=== PATIENT | female | born 1945 | race Two or more races ===

== ENCOUNTER → 2024-06-12 11:08 | Outpatient (REF) | payer OTHER, SELFPAY ==
[2024-06-12 12:41] LABS: % Basophils 1.6 % (0-2); % Eosinophils 5.5 % (0-6); % Immature Granulocytes 0.1 % (0-0.5); % Lymphocytes 41.5 % (20.5-51.1); % Monocytes 11.7 % (1.7-9.3); % Neutrophils 39.6 % (42.2-75.2); Absolute Basophils 0.1 10^3/uL (0-0.2); Absolute Eosinophils 0.4 10^3/uL (0-0.7); Absolute Lymphocytes 2.8 10^3/uL (1.2-3.4); Absolute Monocytes 0.8 10^3/uL (0.1-0.6); Absolute Neutrophils 2.6 10^3/uL (1.4-6.5); Hematocrit 40.2 % (37.0-47.0); Hemoglobin 13.2 g/dL (12.0-16.0); Mean Corp Hgb Conc. 32.8 g/dL (33.0-37.0); Mean Corpuscular Hgb 30.3 pg (27.0-31.0); Mean Corpuscular Volume 92.2 fL (81.0-99.0); Mean Platelet Volume 9.7 fL (7.4-10.4); Nucleated Red Blood Cells % 0 %; Platelet Count 286 10^3/uL (130-400); Red Blood Cell Count 4.36 10^6/uL (4.20-5.40); White Blood Cell Count 6.7 10^3/uL (4.8-10.8)
[2024-06-12 12:59] LABS: ALT (SGPT) 23 U/L (0-35); AST (SGOT) 30 U/L (14-36); Albumin 4.5 g/dl (3.5-5.0); Alkaline Phosphatase 51 U/L (38-126); Blood Urea Nitrogen 22 mg/dl (7-17); Calcium 9.4 mg/dl (8.4-10.2); Carbon Dioxide 29 mmol/L (22-30); Chloride 103 mmol/L (98-107); Glucose 75 mg/dl (70-99); Potassium 4.7 mmol/L (3.5-5.1); Sodium 142 mmol/L (135-145); Total Bilirubin 1.2 mg/dl (0.2-1.3); Total Cholesterol 274 mg/dl (50-199); Total Protein 7.1 g/dl (6.3-8.2); Triglyceride 50 mg/dl (10-149); Very Low Density Lipoprotein 10 mg/dl (0-30); eGFR > 60.00
[2024-06-12 13:12] LABS: HDL Cholesterol 127 mg/dl; LDL Cholesterol, Calculated 137 mg/dl
[2024-06-12 13:28] LABS: TSH 5.03 uIU/ml (0.47-4.68)
== END ==
LOC: OLABN 11:08
PROVIDERS: ATTENDING PHYSICIAN Student in an Organized Health Care Education/Training Program
DX: I10 Essential (primary) hypertension (principal); J44.0 Chronic obstructive pulmonary disease with (acute) lower respiratory infection; N18.9 Chronic kidney disease, unspecified; E78.5 Hyperlipidemia, unspecified
CPT/HCPCS: 36415; 80053; 80061; 84443; 85025

== ENCOUNTER → 2024-08-08 08:57 | Outpatient (REF) | payer MEDICARE, SELFPAY ==
[2024-08-08 11:00] LABS: % Basophils 0.6 % (0-2); % Eosinophils 2.3 % (0-6); % Immature Granulocytes 0.4 % (0-0.5); % Lymphocytes 21.2 % (20.5-51.1); % Monocytes 10.3 % (1.7-9.3); % Neutrophils 65.2 % (42.2-75.2); Absolute Basophils 0.1 10^3/uL (0-0.2); Absolute Eosinophils 0.2 10^3/uL (0-0.7); Absolute Neutrophils 6.2 10^3/uL (1.4-6.5); Hematocrit 36.5 % (37.0-47.0); Hemoglobin 11.9 g/dL (12.0-16.0); Mean Corp Hgb Conc. 32.6 g/dL (33.0-37.0); Mean Corpuscular Hgb 30.4 pg (27.0-31.0); Mean Corpuscular Volume 93.4 fL (81.0-99.0); Mean Platelet Volume 9.5 fL (7.4-10.4); Nucleated Red Blood Cells % 0 %; Platelet Count 285 10^3/uL (130-400); Red Blood Cell Count 3.91 10^6/uL (4.20-5.40); Red Cell Dist. Width 12.9 % (11.5-14.5); White Blood Cell Count 9.5 10^3/uL (4.8-10.8)
[2024-08-08 11:24] LABS: Blood Urea Nitrogen 13 mg/dl (7-17); Calcium 8.6 mg/dl (8.4-10.2); Carbon Dioxide 33 mmol/L (22-30); Chloride 100 mmol/L (98-107); Glucose 81 mg/dl (70-99); Potassium 4.2 mmol/L (3.5-5.1); Sodium 139 mmol/L (135-145); eGFR > 60.00
== END ==
LOC: OLABN 08:57
PROVIDERS: ATTENDING PHYSICIAN Student in an Organized Health Care Education/Training Program
DX: R05.9 Cough, unspecified (principal)
CPT/HCPCS: 36415; 80048; 85025

== ENCOUNTER → 2024-11-14 10:14 | Outpatient (REF) | payer MEDICARE, SELFPAY ==
[2024-11-14 11:17] LABS: Urine Albumin 2+ (Neg - Trace); Urine Bilirubin Negative (Negative); Urine Character Cloudy (Clear); Urine Color Yellow; Urine Glucose Negative (Negative); Urine Ketone Negative (Negative); Urine Leukocyte 2+ (Negative); Urine Nitrite Negative (Negative); Urine Occult Blood 1+ (Negative); Urine Specific Gravity 1.025 (<1.030); Urine Urobilinogen Negative (Neg - 1+)
[2024-11-14 11:24] LABS: Hematocrit 38.7 % (37.0-47.0); Hemoglobin 12.9 g/dL (12.0-16.0); Mean Corp Hgb Conc. 33.3 g/dL (33.0-37.0); Mean Corpuscular Hgb 30.3 pg (27.0-31.0); Mean Corpuscular Volume 90.8 fL (81.0-99.0); Mean Platelet Volume 9.4 fL (7.4-10.4); Platelet Count 307 10^3/uL (130-400); Red Blood Cell Count 4.26 10^6/uL (4.20-5.40); Red Cell Dist. Width 13.6 % (11.5-14.5); White Blood Cell Count 8.9 10^3/uL (4.8-10.8)
[2024-11-14 11:45] LABS: Urine Squamous Cell 0-2 /LPF (Few)
[2024-11-14 11:46] LABS: Urine Bacteria Many (Negative); Urine Calcium Oxalate Crystals Present; Urine Red Blood Cell 0-2 /HPF (0-2)
[2024-11-14 11:48] LABS: Blood Urea Nitrogen 15 mg/dl (7-17); Calcium 9.2 mg/dl (8.4-10.2); Carbon Dioxide 31 mmol/L (22-30); Chloride 102 mmol/L (98-107); Glucose 111 mg/dl (70-99); Magnesium 2.1 mg/dl (1.6-2.3); Potassium 4.6 mmol/L (3.5-5.1); Sodium 141 mmol/L (135-145); eGFR > 60.00
[2024-11-16 02:38] LABS: Keppra (Levetiracetam) 22 ug/mL (10-40)
== END ==
LOC: OLABN 10:14
PROVIDERS: ATTENDING PHYSICIAN Student in an Organized Health Care Education/Training Program
DX: G40.001 Localization-related (focal) (partial) idiopathic epilepsy and epileptic syndromes with seizures of localized onset, not intractable, with status epilepticus (principal); Z79.899 Other long term (current) drug therapy
CPT/HCPCS: 36415; 80048; 80177; 81003; 81015; 83735; 85027; 87086

== ENCOUNTER → 2024-11-19 11:44 | Outpatient (REF) | payer OTHER, MEDICARE, SELFPAY ==
[2024-11-19 13:38] LABS: Free T4 0.72 ng/dl (0.78-2.19)
[2024-11-19 13:52] LABS: TSH 3.48 uIU/ml (0.47-4.68)
== END ==
LOC: OLABN 11:44
PROVIDERS: ATTENDING PHYSICIAN Student in an Organized Health Care Education/Training Program
DX: E03.9 Hypothyroidism, unspecified (principal)
CPT/HCPCS: 36415; 84439; 84443

== ENCOUNTER → 2024-12-21 09:40 | Outpatient (REF) | payer MEDICARE, SELFPAY ==
[2024-12-21 12:05] LABS: Depakane 21.4 ug/ml (50.0-120.0)
== END ==
LOC: OLABN 09:40
PROVIDERS: ATTENDING PHYSICIAN Student in an Organized Health Care Education/Training Program
DX: Z79.899 Other long term (current) drug therapy (principal)
CPT/HCPCS: 80164

== ENCOUNTER 2025-02-04 16:13 | Emergency (ER) | payer MEDICARE, SELFPAY ==
[2025-02-04 16:15] VITALS: BP 146/69
[2025-02-04 16:20] VITALS: BMI 25.3
[2025-02-04 16:46] LABS: Hematocrit 36.0 % (37.0-47.0); Hemoglobin 12.2 g/dL (12.0-16.0); Mean Corp Hgb Conc. 33.9 g/dL (33.0-37.0); Mean Corpuscular Volume 90.5 fL (81.0-99.0); Nucleated Red Blood Cells % 0 %; Platelet Count 211 10^3/uL (130-400); Red Cell Dist. Width 13.1 % (11.5-14.5)
[2025-02-04 16:58] LABS: ALT (SGPT) 19 U/L (0-35); AST (SGOT) 30 U/L (14-36); Albumin 3.9 g/dl (3.5-5.0); Alkaline Phosphatase 59 U/L (38-126); Blood Urea Nitrogen 19 mg/dl (7-17); Calcium 8.7 mg/dl (8.4-10.2); Carbon Dioxide 26 mmol/L (22-30); Chloride 104 mmol/L (98-107); Estimated Creatinine Clearance 61 ml/min; Glucose 210 mg/dl (70-99); Potassium 3.8 mmol/L (3.5-5.1); Sodium 137 mmol/L (135-145); Total Protein 6.8 g/dl (6.3-8.2); eGFR > 60.00
[2025-02-04 17:00] VITALS: BP 140/88
--- NOTE | 2025-02-04 17:09 | ED.GENMED ---
History of Present Illness
General
Chief Complaint: Breathing Problem
Source: ambulance crew
Exam Limitations: dementia
Time Seen by Provider: 02/04/25 16:57
History of Present Illness
History of Present Illness:
79yoF with a history of dementia, COPD on 2L NC, hypertension, hyperlipidemia, hypothyroidism presenting via EMS for evaluation of shortness of breath. Patient is a resident at [facility]. She became acutely dyspneic this afternoon and was
cyanotic so EMS was called. Her initial oxygen saturation was 79%. She received a DuoNeb and IV Solumedrol and patient is now significantly improved. Patient arrives with a POLST form that indicates that she is DNR/DNI and comfort measures only.
Phy Exam
Physical Exam
Physical Exam:
Chronically ill appearing elderly female, no acute distress noted
General Physical Exam
General Presentation: no apparent distress
General Skin: warm and dry
General Habitus: normal and elderly
General Mental: alert
ENT Exam
ENT Exam: normocephalic
Cardiovascular Exam
Cardiovascular Exam: no edema and tachycardia
Pulmonary Exam
Pulmonary Exam: decreased breath sounds and other (Mild pursed lip breathing noted although patient is pulling off her nasal cannula. Breath sounds decreased. No wheezing or rales noted.)
Neurological Exam
Neurological Exam: alert
Skin Exam
Skin Exam: normal color and warm/dry
Psychiatric Exam
Psychiatric Exam: normal mood/affect
Scores
Heart Failure Risk
Heart Failure Risk Score: Not Applicable
Sepsis
Sepsis Screening
Sepsis Assessment: Sepsis Ruled Out
Sepsis Screen
Sepsis Screen: Sepsis Ruled Out
Date: 02/04/25
Time: 23:47
Course
Orders/Labs/Results
Orders:
Orders
02/04/25 16:22
ECG [Electrocardiogram (*1)] Urgent
Reason for Study: Shortness of Breath
EKG- Treatment ONCE
02/04/25 16:34
Complete Blood Count/With Diff Urgent
Comprehensive Metabolic Panel Urgent
02/04/25 17:08
CR Chest - 2 Views Urgent
Comment:
Reason For Exam: SOB
02/04/25 19:34
Azithromycin [Zithromax] 500 mg PO NOW STA
Abnormal Lab Results
02/04/25
16:34
RBC 3.98 L 10^6/uL
(4.20-5.40)
Hct 36.0 L %
(37.0-47.0)
Absolute Lymphs (auto) 0.7 L 10^3/uL
(1.2-3.4)
Absolute Monos (auto) 1.4 H 10^3/uL
(0.1-0.6)
Lymphocytes % 8.4 L %
(20.5-51.1)
Monocytes % 17.3 H %
(1.7-9.3)
BUN 19 H mg/dl
(7-17)
Glucose 210 H mg/dl
(70-99)
Total Bilirubin 2.6 H mg/dl
(0.2-1.3)
02/04/25 16:34
02/04/25 16:34
Vital Signs
Initial and Last Documented VS:
Initial Vital Signs
Temp Pulse Resp BP Pulse Ox
98.5 F 115 32 146/69 97
02/04/25 16:15 02/04/25 16:15 02/04/25 16:15 02/04/25 16:15 02/04/25 16:15
Last Documented Vital Signs
Temp Pulse Resp BP Pulse Ox
98.5 F 98 20 151/82 92
02/04/25 16:15 02/04/25 20:36 02/04/25 20:36 02/04/25 20:36 02/04/25 20:36
MDM/Problems Addressed
Differential Diagnosis Includes:
79yoF here with SOB and low oxygen saturations this afternoon. Hx of COPD on 2L NC. Received IV Solumedrol and DuoNeb prehospital and now significantly improved. Patient is in no distress on initial exam. Breath sounds decreased but no wheezing
noted. Differential diagnosis includes but is not limited to: COPD exacerbation, pneumonia, bronchitis, aspiration
Initial ED plan: Workup initiated by nursing staff. Labs overall unremarkable including normal white count. EKG shows RBBB without ischemic changes. Will obtain CXR and speak with daughter regarding goals of care.
*Pulse Oximetry
SaO2: 95
Nasal Cannula flow liters per minute: 4
Patient hypoxic: no (92%)
*EKG
Interpreted by ED Provider?: Yes
EKG Intrepretation Date: 02/04/25
Heart Rate: 102
Rate: tachycardiac
Rhythm: sinus and PVC's
[place]: left axis deviation
QRS Pattern: right bundle branch block
Ischemia: no ischemia
*Critical Care Note
Total Time (30-74mins, 75-104mins- exclusive of procedures): Not Applicable
Update Note
Update Note:
Chest x-ray shows mild diffuse interstitial prominence which may reflect interstitial edema and or pneumonitis. Patient has no signs of volume overload on exam given significant improvement after neb treatment and steroids, favor pneumonitis. I
spoke with patient's daughter, Alisia, via phone to provide update. Discussed that patient seems significantly improved and is now doing well on her usual 2L NC. Daughter is requesting for patient to be discharged back to [facility]. She
states 'the least amount of time she's in the ED, the better' as patient becomes agitated and has required restraints in the past. Patient did try to get out of bed and pulled off her nasal cannula several times but she was able to be redirected by
nursing staff. At this point, will discharge patient back to [facility] with prescriptions for prednisone and azithromycin to cover for a COPD exacerbation. Patient able to be monitored by [facility] staff.
ED Attending Note
-
Portions of this chart may have been created with voice recognition software.� Occasional wrong word or��sound alike� substitutions may have occurred due to the inherent limitations of voice recognition software.
Discharge Plan
Departure
Patient Disposition: Home (Routine Discharge)
Date of Disposition: 02/04/25
Time of Disposition: 18:06
Patient with high blood pressure during this ER visit?: Yes
Discharge Problem:
Acute exacerbation of chronic obstructive pulmonary disease
Instructions: COPD exacerbation - Discharge instructions
Prescriptions:
New
prednisone 20 mg tablet
40 mg PO DAILY 5 Days Qty: 10 0RF
azithromycin [Zithromax] 250 mg tablet
250 mg PO DAILY Qty: 4 0RF
Rx Instructions:
Next dose 02/05
Referrals:
UNKNOWN - PT DOES,NOT KNOW [Family Provider]
Activity Restrictions/Additional Instructions:
Give prednisone and azithromycin as prescribed. Give albuterol treatments as needed for wheezing/shortness of breath.
Please follow-up with a family doctor in 1-2 days. Return to the ER with any worsening symptoms.
Interventions
Interventions:
*Risk Screen - Suicide Last Done: 02/04/25 16:23
*General Assessment Last Done: 02/04/25 16:23
*Neglect/Abuse Screening Last Done: 02/04/25 16:23
*Nursing Disposition Last Done: 02/04/25 20:54
ED- Cardiac Assessment Last Done: 02/04/25 16:32
ED- Pulmonary Assessment Last Done: 02/04/25 16:32
Discharge Date and Time
Discharge Date/Time: 02/04/25 20:54
Print Language: INDONESIAN
[2025-02-04] MEDS: ZITHROMAX 500 MG PO (19:48)
[2025-02-04 20:36] VITALS: BP 151/82
== END 2025-02-04 20:54 | disposition home or self-care (01) ==
LOC: EMR 16:13
PROVIDERS: Emergency Medicine; EMERGENCY PHYSICIAN Emergency Medicine
DX: J44.1 Chronic obstructive pulmonary disease with (acute) exacerbation (principal); I45.10 Unspecified right bundle-branch block; F03.90 Unspecified dementia, unspecified severity, without behavioral disturbance, psychotic disturbance, mood disturbance, and anxiety; E03.9 Hypothyroidism, unspecified; E78.5 Hyperlipidemia, unspecified; I10 Essential (primary) hypertension; Z66 Do not resuscitate; Z99.81 Dependence on supplemental oxygen
CPT/HCPCS: 99283; 71046; 80053; 85025; 93005